=== PATIENT | female | born 1995 | race Caucasian/White ===

== ENCOUNTER 2018-12-11 13:22 | Emergency (ER) | payer SELFPAY ==
[~2018-12-11] VITALS: Ht 167.6 cm; Wt 62.6 kg
[2018-12-11 13:25] VITALS: BP 117/64
[2018-12-11] MEDS ORDERED: NACL 0.9% 1,000 ML IV ONE (14:30)
[2018-12-11] MEDS ORDERED: ONDANSETRON 4 MG/2 ML VIAL IVP ONE (14:30)
[2018-12-11] MEDS ORDERED: MORPHINE SULFATE 4 MG/ML SYR IVP ONE (14:30)
[2018-12-11 15:00] LABS: BASOPHILS % (AUTO) 0.6 % (0.0-2.0); EOSINOPHILS # (AUTO) 0.1 K/uL (0-0.4); HEMOGLOBIN 11.2 g/dL (12.0-16.0); LYMPHOCYTES # (AUTO) 0.7 K/uL (2.5-16.5); LYMPHOCYTES % (AUTO) 9.7 % (20.5-51.1); MEAN CORPUSCULAR HEMOGLOBIN 28 pg (27-31); MEAN CORPUSCULAR HGB CONC 33 g/dL (33-37); MEAN CORPUSCULAR VOLUME 86.1 fL (80-94); MONOCYTES # (AUTO) 0.3 K/uL (0.8-1.0); MONOCYTES % (AUTO) 4.1 % (1.7-9.3); NEUTROPHILS # (AUTO) 6.1 K/uL (1.8-7.7); NEUTROPHILS % (AUTO) 84.6 % (42.2-75.2); PLATELET COUNT (AUTO) 174 K/uL (140-450); RED BLOOD CELL COUNT(AUTO) 3.95 MIL/uL (4.20-5.40); WHITE BLOOD COUNT (AUTO) 7.2 K/uL (4.8-10.8)
[2018-12-11 15:29] LABS: ALBUMIN 3.8 g/dL (3.4-5.0); CARBON DIOXIDE 24.1 mmol/L (21-32); CREATININE 0.8 mg/dL (0.6-1.3); POTASSIUM 3.1 mmol/L (3.5-5.1); TOTAL BILIRUBIN 0.7 mg/dL (0.0-1.0)
[2018-12-11 16:05] LABS: BARBITURATE, URINE NEG. ng/ml (NEG <=200); BENZODIAZEPINE, URINE NEG. ng/mL (NEG <=200); CANNABINOID, URINE POS. ng/mL (NEG <=50); COCAINE, URINE NEG. ng/mL (NEG <=300); OPIATE, URINE POS. ng/mL (NEG <=2000); PHENCYCLIDINE SCREEN,URINE NEG. ng/mL (NEG <=25)
[2018-12-11] MEDS ORDERED: fentaNYL 0.05 MG/ML VIAL IVP ONE (16:15)
[2018-12-11] MEDS ORDERED: LORazepam 2 MG/ML VIAL IVP ONE (16:15)
[2018-12-11 17:18] VITALS: BP 115/62
== END 2018-12-11 17:18 | disposition home or self-care (01) ==
LOC: MED 13:22
DX: N94.6 Dysmenorrhea, unspecified (principal); R11.2 Nausea with vomiting, unspecified; F12.10 Cannabis abuse, uncomplicated
CPT/HCPCS: 36415; 76856; 80053; 80305; 81002; 81025; 85025; 96361; 96374; 96375; 99284; J2060; J2270; J2405; J3010; J7030; Q0092